=== PATIENT | female | born 1985 | race African-American/Black ===

== ENCOUNTER 2019-11-24 08:43 | Emergency (ER) | payer MEDICAID ==
[~2019-11-24] VITALS: Ht 160 cm; Wt 91.0 kg
[2019-11-24 08:55] VITALS: BP 106/72
== END 2019-11-24 10:11 | disposition left against medical advice (07) ==
LOC: ER 08:43
DX: Z53.21 Procedure and treatment not carried out due to patient leaving prior to being seen by health care provider (principal); J45.909 Unspecified asthma, uncomplicated; D64.9 Anemia, unspecified

== ENCOUNTER 2019-11-24 10:34 | Emergency (ER) | payer MEDICAID ==
[~2019-11-24] VITALS: Ht 160 cm; Wt 91.0 kg
[2019-11-24] MEDS ORDERED: ACETAMINOPHEN 325MG TABLET PO STA (10:44)
[2019-11-24 10:50] VITALS: BP 107/80
[2019-11-24 11:11] LABS: EOSINOPHILS % 1.8 % (0.0-5.0); HEMATOCRIT. 40.2 % (36.0-48.0); HEMOGLOBIN. 13.3 g/dL (12.0-16.0); LYMPHOCYTES % 20.2 % (20.0-50.0); MEAN CORPUSCULAR HEMOGLOBIN 29.2 pg (28.0-32.0); MEAN CORPUSCULAR VOLUME 88.1 fL (81.0-99.0); MEAN PLATELET VOLUME 8.8 fl (7.4-10.4); MONOCYTES % 7.1 % (2.0-8.0); NEUTROPHILS % 69.9 % (40.0-76.0); PLATELET 215 x1000/uL (130-400); RED BLOOD CELL COUNT 4.57 mill/uL (4.2-5.4); RED CELL DISTRIBUTION WIDTH 14.2 % (11.6-14.6)
[2019-11-24 11:15] LABS: CHLORIDE 109 mEq/L (98-107)
[2019-11-24] MEDS ORDERED: AMOXICILLIN/POTASSIUM CLAVULANATE 875/125MG TAB PO ONE (11:15)
[2019-11-24 11:36] LABS: CLARITY URINE CLOUDY (CLEAR); COLOR URINE DARK YELLOW (YELLOW); KETONES URINE TRACE (NEGATIVE); LEUKOCYTE ESTERASE URINE NEGATIVE (NEGATIVE); NITRITE URINE NEGATIVE (NEGATIVE); OCCULT BLOOD URINE 1+ (NEGATIVE); PROTEIN URINE TRACE (NEGATIVE); SPECIFIC GRAVITY URINE 1.035 (1.005-1.030)
== END 2019-11-24 14:00 | disposition home or self-care (01) ==
LOC: ER 10:45
DX: S02.2XXA Fracture of nasal bones, initial encounter for closed fracture (principal); S21.051A Open bite of right breast, initial encounter; M25.512 Pain in left shoulder; M25.521 Pain in right elbow; M25.572 Pain in left ankle and joints of left foot; J45.909 Unspecified asthma, uncomplicated; D64.9 Anemia, unspecified; Y04.1XXA Assault by human bite, initial encounter; Y08.89XA Assault by other specified means, initial encounter; Y93.9 Activity, unspecified; Y92.9 Unspecified place or not applicable
CPT/HCPCS: 36415; 70486; 71045; 73030; 73070; 73130; 73600; 80048; 81003; 81025; 85025; 93005; 99285

== ENCOUNTER 2020-08-15 19:01 | Emergency (ER) | payer MEDICAID, OTHER ==
[~2020-08-15] VITALS: Ht 162.6 cm; Wt 100.0 kg
[2020-08-15] MEDS ORDERED: LIDOCAINE HCL/PF 1% 10 MG/ML 5ML VIAL IJ ONE (22:30)
[2020-08-15] MEDS ORDERED: HYDROCODONE/ACETAMINOPHEN 5/325MG TABLET PO ONE (22:30)
[2020-08-15] MEDS ORDERED: BACITRACIN ZINC OINT UDPKT TOP ONE (22:30)
[2020-08-15] MEDS ORDERED: TETRACAINE 0.5% OPHTH DROPS 4ML LEFTEYE ONE (23:00)
[2020-08-15] MEDS ORDERED: FLUORESCEIN SODIUM 1MG/STRIP LEFTEYE ONE (23:00)
[2020-08-15] MEDS ORDERED: BALANCED SALT IRRIG SOLN 15ML IR ONE (23:00)
[2020-08-16] MEDS ORDERED: AMOXICILLIN/POTASSIUM CLAVULANATE 875/125MG TAB PO SCH (01:45)
[2020-08-16] MEDS ORDERED: HYDR-4346 PO (01:53)
[2020-08-16] MEDS ORDERED: IBUP-2029 PO (01:53)
[2020-08-16] MEDS ORDERED: AMOX-424 PO (01:53)
[2020-08-16 04:45] VITALS: BP 112/73
[2020-08-16] MEDS ORDERED: HYDR-4001 PO (05:53)
== END 2020-08-16 04:47 | disposition home or self-care (01) ==
LOC: ER 19:12
DX: S01.81XA Laceration without foreign body of other part of head, initial encounter (principal); S02.832A Fracture of medial orbital wall, left side, initial encounter for closed fracture; S02.2XXA Fracture of nasal bones, initial encounter for closed fracture; Y08.89XA Assault by other specified means, initial encounter; Y93.9 Activity, unspecified; Y92.9 Unspecified place or not applicable
CPT/HCPCS: 12013; 70450; 70486; 81025; 99285; J3490; Z7610

== ENCOUNTER 2020-09-17 01:34 | Emergency (ER) | payer MEDICAID, OTHER ==
[~2020-09-17] VITALS: Ht 165.1 cm; Wt 82.0 kg
[~2020-09-17 01:34] MED LIST: AMOX-424 PO; HYDR-4001 PO; IBUP-2029 PO
[2020-09-17 02:52] LABS: BASOPHILS % 0.9 % (0.0-2.0); EOSINOPHILS % 0.6 % (0.0-5.0); HEMOGLOBIN. 11.7 g/dL (12.0-16.0); LYMPHOCYTES % 9.5 % (20.0-50.0); MEAN CORPUSCULAR HEMOGLOBIN 28.8 pg (28.0-32.0); MEAN CORPUSCULAR VOLUME 86.2 fL (81.0-99.0); MEAN PLATELET VOLUME 8.7 fl (7.4-10.4); MONOCYTES % 7.6 % (2.0-8.0); NEUTROPHILS % 81.4 % (40.0-76.0); PLATELET 237 x1000/uL (130-400); RED BLOOD CELL COUNT 4.06 mill/uL (4.2-5.4); RED CELL DISTRIBUTION WIDTH 14.9 % (11.6-14.6)
[2020-09-17 02:58] LABS: CHLORIDE 107 mEq/L (98-107)
[2020-09-17 03:00] LABS: HCG SCREEN NEGATIVE; PROTHROMBIN TIME 10.6 sec (9.6-11.0)
[2020-09-17 03:37] LABS: *BARBITURATES SCREEN URINE NEGATIVE (NEGATIVE)
[2020-09-17 03:38] LABS: *BENZODIAZEPINES SCREEN URINE NEGATIVE (NEGATIVE); *COCAINE SCREEN URINE NEGATIVE (NEGATIVE); METHADONE URINE SCREEN NEGATIVE (NEGATIVE); OPIATES URINE SCREEN NEGATIVE (NEGATIVE); PHENCYCLIDINE URINE SCREEN NEGATIVE (NEGATIVE)
[2020-09-17 03:46] LABS: *AMPHETAMINES SCREEN URINE PRESUMTIVE POSITIVE (NEGATIVE); CANNABINOID URINE SCREEN PRESUMTIVE POSITIVE (NEGATIVE)
[2020-09-17] MEDS ORDERED: RISPERIDONE 1MG TABLET PO SCH (09:00)
[2020-09-17 11:09] VITALS: BP 128/80
[2020-09-17] MEDS ORDERED: MIRTAZAPINE 30MG TABLET PO SCH (21:00)
== END 2020-09-17 11:18 | disposition home or self-care (01) ==
LOC: ER 01:34
DX: F15.10 Other stimulant abuse, uncomplicated (principal); F16.10 Hallucinogen abuse, uncomplicated; F22 Delusional disorders; F91.8 Other conduct disorders; F12.10 Cannabis abuse, uncomplicated; F17.210 Nicotine dependence, cigarettes, uncomplicated; J45.909 Unspecified asthma, uncomplicated; Z20.822 Contact with and (suspected) exposure to COVID-19
CPT/HCPCS: 36415; 80053; 80305; 83690; 84703; 85025; 85610; 99283; Z7610